=== PATIENT | male | born 1985 | race Caucasian/White ===

== ENCOUNTER 2017-10-22 11:51 | Emergency (ER) | payer OTHER ==
--- NOTE | 2017-10-22 12:37 | CPEKG ---
Heart Rate: 82 RR Interval: 732 P-R Interval: 164 QRSD Interval: 98 QT Interval: 380 QTC Interval: 444 P [place]: 82 QRS [place]: 74 T Wave [place]: 18 EKG Severity - BORDERLINE ECG - EKG Impression: SINUS RHYTHM EKG Impression: BORDERLINE T WAVE ABNORMALITIES Electronically Signed By: Mauricio Cunningham 22-Oct-2017 15:05:21
--- NOTE | 2017-10-22 13:07 | EDPHY ---
HPI/HX/ROS/PE/MDM Narrative: CHIEF COMPLAINT: Chest pain HPI: The patient is a 31-year-old male with no significant past medical history. He complains of intermittent substernal sharp chest pain over the last week. Pain has become constant over the last 4 days and is worse with exercise and inspiration. It is somewhat worse at the end of the day compared to beginning. He has no family history of heart disease or connective tissue disease. He denies fever, trauma, obvious musculoskeletal cause of pain. No abdominal pain. REVIEW OF SYSTEMS: Aside from elements discussed in the HPI, a comprehensive 10-point review of systems was reviewed and is negative. PMH: None significant. 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 Recently moved here from [place]. PHYSICAL EXAM: General:Patient is alert, in no acute distress. Somewhat tall in appearance. ENT:Eyes are normal to inspection. ENT inspection normal. Neck: Normal inspection. Full range of motion. Respiratory:No respiratory distress. Breath sounds normal bilaterally. Cardiovascular: Regular rate and rhythm. Strong peripheral pulses. Normal cap refill. Abdomen:The abdomen is nontender to palpation. There are no peritoneal signs. There are normal bowel sounds. Back: Normal to inspection. No tenderness to palpation. Skin: Normal color. No rash. Warm and dry. Extremities: Normal appearance. Full range of motion. Neuro: Oriented x3. Normal motor function. Normal sensory function. MDM: This is a young healthy male who complains of atypical chest pain. His workup is negative, including negative d-dimer and CXR. He is neither hypoxic nor tachycardic. I think likelihood of PE or TAD in this setting is very low, and patient declines CTA at this time due to financial reasons. We discussed strict return precautions and I will refer him to Cardiology. He is comfortable with this plan. - Data Points Imaging Results: Imaging Impressions Chest X-Ray 10/22/17 13:06 Impression: Possible air trapping. Laboratory Results: Laboratory Results 10/22/17 12:30 10/22/17 12:30 10/22/17 10/22/17 10/22/17 12:30 12:30 12:30 WBC 5.21 10^3/uL 10^3/uL (3.80-9.50) RBC 5.58 10^6/uL 10^6/uL (4.40-6.38) Hgb 16.7 g/dL g/dL (13.7-17.5) Hct 49.3 % % (40.0-51.0) MCV 88.4 fL fL (81.5-99.8) MCH 29.9 pg pg (27.9-34.1) MCHC 33.9 g/dL g/dL (32.4-36.7) RDW 12.3 % % (11.5-15.2) Plt Count 230 10^3/uL 10^3/uL (150-400) MPV 9.5 fL fL (8.7-11.7) Neut % (Auto) 71.5 % % (39.3-74.2) Lymph % (Auto) 20.9 % % (15.0-45.0) [place] % (Auto) 6.0 % % (4.5-13.0) Eos % (Auto) 0.8 % % (0.6-7.6) Baso % (Auto) 0.6 % % (0.3-1.7) Nucleat RBC Rel Count 0.0 % % (0.0-0.2) Absolute Neuts (auto) 3.73 10^3/uL 10^3/uL (1.70-6.50) Absolute Lymphs (auto) 1.09 10^3/uL 10^3/uL (1.00-3.00) Absolute Monos (auto) 0.31 10^3/uL 10^3/uL (0.30-0.80) Absolute Eos (auto) 0.04 10^3/uL 10^3/uL (0.03-0.40) Absolute Basos (auto) 0.03 10^3/uL 10^3/uL (0.02-0.10) Absolute Nucleated RBC 0.00 10^3/uL 10^3/uL (0-0.01) Immature Gran % 0.2 % % (0.0-1.1) Immature Gran # 0.01 10^3/uL 10^3/uL (0.00-0.10) D-Dimer 0.27 ug/mLFEU ug/mLFEU (0.00-0.50) Sodium 143 mEq/L mEq/L (135-145) Potassium 4.3 mEq/L mEq/L (3.5-5.2) Chloride 101 mEq/L mEq/L (97-110) Carbon Dioxide 27 mEq/l mEq/l (22-31) Anion Gap 15 mEq/L mEq/L (8-16) BUN 14 mg/dL mg/dL (7-23) Creatinine 0.9 mg/dL mg/dL (0.7-1.3) Estimated GFR > 60 Glucose 84 mg/dL mg/dL (70-100) Calcium 10.3 mg/dL mg/dL (8.5-10.4) Troponin I < 0.012 ng/mL ng/mL (0.000-0.034) General Time Seen by Provider: 10/22/17 12:53 Initial Vital Signs: Initial Vital Signs Temperature (C) 36.7 C 10/22/17 11:54 Heart Rate 84 10/22/17 11:54 Respiratory Rate 18 10/22/17 11:54 Blood Pressure 141/110 H 10/22/17 11:54 O2 Sat (%) 96 10/22/17 11:54 O2 Delivery Mode Room Air Allergies/Adverse Reactions: No Known Allergies Allergy (Unverified 10/22/17 11:53) Home Medications: Medication Instructions Recorded Xanax 10/22/17 Departure - Departure Disposition: Home, Routine, Self-Care Clinical Impression: Chest pain Condition: Good Instructions: Chest Pain (ED) Additional Instructions: Follow-up with your primary doctor within 72 hours. Return to the Emergency Department for fever, chest pain, shortness of breath, increasing pain or other worsening of condition. Follow up with a head loft worker for further testing, as soon as possible if pain continues, within one week. We would be happy to reevaluate you and observe you in the hospital at any time. Try taking an over- the-counter anti acid medication such as Zantac or Prilosec as directed. Referrals: ELMO SALDIVAR [Primary Care Provider] - As per Instructions
[2017-10-22 13:11] LABS: PLATELET COUNT 230 10^3/uL (150-400)
[2017-10-22] MEDS ORDERED: KETOROLAC 30 MG/1 ML SDV IVP ONE (14:13)
[2017-10-22 14:35] VITALS: BP 124/82
== END 2017-10-22 14:53 | disposition home or self-care (01) ==
DX: R07.9 Chest pain, unspecified (principal)
CPT/HCPCS: 96374; J1885

== ENCOUNTER → 2017-11-01 | Outpatient (CLI) | payer OTHER ==
[~2017-11-01] MED LIST: IOPAMIDOL (ISOVUE-370) 150 ML BTL IV ONE; METOPROLOL TARTRATE 5 MG/5 ML INJ ONE
== END ==
LOC: FIMAGING 08:21
PROVIDERS: ATTEND Internal Medicine Cardiovascular Disease
DX: R07.9 Chest pain, unspecified (principal); I77.89 Other specified disorders of arteries and arterioles
CPT/HCPCS: Q9967